=== PATIENT | male | born 1995 | race Caucasian/White ===

== ENCOUNTER → 2021-01-27 | Outpatient (CLI) | payer OTHER ==
[~2021-01-27] MED LIST: LAMICTAL100 MG PO; PROTONIX 20 MG20 MG PO
[2021-01-27 08:40] LABS: HEMOGLOBIN 15.1 gm/dl (14.0-17.5); RED BLOOD COUNT 4.61 M/UL (4.20-5.50); WHITE BLOOD COUNT 6.3 K/UL (4.5-11.0)
[2021-01-27 09:29] LABS: BUN/CREATININE RATIO 14 (0-10)
[2021-01-29 05:11] LABS: THYROXINE (T4) 7.5 ug/dL (4.5-12.0)
== END ==
LOC: LAB 08:16
PROVIDERS: Nurse Practitioner Family
DX: R53.82 Chronic fatigue, unspecified (principal); R63.0 Anorexia; F41.1 Generalized anxiety disorder; R10.2 Pelvic and perineal pain; K56.41 Fecal impaction
CPT/HCPCS: 36415; 74018; 80053; 80061; 81001; 84153; 84436; 84443; 84480; 85025

== ENCOUNTER 2021-06-22 19:13 | Emergency (ER) | payer OTHER ==
[2021-06-22 21:11] LABS: HEMOGLOBIN 13.4 gm/dl (14.0-17.5); RED BLOOD COUNT 4.12 M/UL (4.20-5.50); WHITE BLOOD COUNT 2.9 K/UL (4.5-11.0)
[2021-06-22 21:32] LABS: BUN/CREATININE RATIO 8 (0-10)
== END 2021-06-22 23:15 | disposition home or self-care (01) ==
LOC: ER1 19:13
PROVIDERS: Family Medicine
DX: U07.1 COVID-19 (principal); R10.32 Left lower quadrant pain; Z90.49 Acquired absence of other specified parts of digestive tract
CPT/HCPCS: 80053; 81001; 83690; 85025; 96374; 96375; 99284; J1885; J2405; Q9967

== ENCOUNTER → 2021-08-15 | Outpatient (CLI) | payer OTHER ==
[2021-08-15 14:06] LABS: HEMOGLOBIN 14.2 gm/dl (14.0-17.5); RED BLOOD COUNT 4.27 M/UL (4.20-5.50); WHITE BLOOD COUNT 4.3 K/UL (4.5-11.0)
[2021-08-15 14:30] LABS: BUN/CREATININE RATIO 15 (0-10)
[2021-08-16 10:14] LABS: HBSAG SCREEN Negative (Negative); HEP A AB, IGM Negative (Negative); HEP B CORE AB, IGM Negative (Negative); HEP C VIRUS AB <0.1 (0.0-0.9)
== END ==
LOC: LAB 13:08
PROVIDERS: Nurse Practitioner Family
DX: Z11.59 Encounter for screening for other viral diseases (principal); R00.2 Palpitations; R53.82 Chronic fatigue, unspecified; R63.4 Abnormal weight loss
CPT/HCPCS: 36415; 80053; 80074; 84439; 84443; 85025; 85652; 86140

== ENCOUNTER → 2021-10-21 | Outpatient (CLI) | payer OTHER ==
[~2021-10-21] MED LIST changes: +PROTONIX 40 MG40 M1 PO
[2021-10-21 15:50] LABS: HEMOGLOBIN 13.7 gm/dl (14.0-17.5); RED BLOOD COUNT 4.19 M/UL (4.20-5.50); WHITE BLOOD COUNT 3.6 K/UL (4.5-11.0)
[2021-10-22 08:15] LABS: ALBUMIN 4.4 g/dL (4.1-5.2); ALKALINE PHOSPHATASE 61 IU/L (44-121); ALT (SGPT) 18 IU/L (0-44); AST (SGOT) 22 IU/L (0-40); BILIRUBIN, DIRECT 0.33 mg/dL (0.00-0.40); BILIRUBIN, TOTAL 1.3 mg/dL (0.0-1.2); BUN 11 mg/dL (6-20); BUN/CREATININE RATIO 13 (9-20); CALCIUM, SERUM 9.2 mg/dL (8.7-10.2); CARBON DIOXIDE, TOTAL 25 mmol/L (20-29); CHLORIDE, SERUM 105 mmol/L (96-106); CREATININE, SERUM 0.85 mg/dL (0.76-1.27); EGFR IF AFRICN AM 140 (>59); EGFR IF NONAFRICN AM 121 (>59); GLUCOSE, SERUM 79 mg/dL (65-99); POTASSIUM, SERUM 4.1 mmol/L (3.5-5.2); PROTEIN, TOTAL 6.5 g/dL (6.0-8.5); SODIUM, SERUM 145 mmol/L (134-144)
[2021-10-22 16:12] LABS: ENDOMYSIAL ANTIBODY IGA Negative (Negative); IMMUNOGLOBULIN A, QN, SERUM 80 mg/dL (90-386); T-TRANSGLUTAMINASE (TTG) IGA <2 U/mL (0-3); T-TRANSGLUTAMINASE (TTG) IGG <2 U/mL (0-5)
== END ==
LOC: LAB 15:18
PROVIDERS: Internal Medicine Gastroenterology
DX: R94.5 Abnormal results of liver function studies (principal)
CPT/HCPCS: 36415; 80048; 80076; 82150; 82784; 83690; 85027

== ENCOUNTER → 2021-10-23 | Day surgery (SDC) | payer OTHER | END | disposition home or self-care (01) | LOC: OR 06:41 | DX: K31.7 Polyp of stomach and duodenum (principal); K22.2 Esophageal obstruction; G89.29 Other chronic pain; R10.10 Upper abdominal pain, unspecified; K59.09 Other constipation; R63.6 Underweight; R11.0 Nausea; Z72.0 Tobacco use; Z20.822 Contact with and (suspected) exposure to COVID-19 | CPT/HCPCS: J2704; J7040 ==

== ENCOUNTER → 2021-11-08 | Outpatient (CLI) | payer OTHER ==
[2021-11-08 14:46] LABS: HEMOGLOBIN 14.7 gm/dl (14.0-17.5); RED BLOOD COUNT 4.46 M/UL (4.20-5.50)
[2021-11-08 15:33] LABS: BUN/CREATININE RATIO 9 (0-10)
[2021-11-09 07:11] LABS: VITAMIN D, 25-HYDROXY 29.5 ng/mL (30.0-100.0)
== END ==
LOC: LAB 14:03
PROVIDERS: Nurse Practitioner
DX: R10.30 Lower abdominal pain, unspecified (principal); F41.1 Generalized anxiety disorder; E03.9 Hypothyroidism, unspecified; E55.9 Vitamin D deficiency, unspecified; R53.83 Other fatigue; R53.82 Chronic fatigue, unspecified; K59.00 Constipation, unspecified
CPT/HCPCS: 36415; 74018; 80053; 80061; 81001; 84436; 84443; 84480; 85025

== ENCOUNTER → 2022-01-08 | Day surgery (SDC) | payer OTHER ==
[2022-01-08 11:09] LABS: HEMOGLOBIN 13.6 gm/dl (14.0-17.5); RED BLOOD COUNT 4.16 M/UL (4.20-5.50); WHITE BLOOD COUNT 4.6 K/UL (4.5-11.0)
[2022-01-10 14:13] LABS: ENDOMYSIAL ANTIBODY IGA Negative (Negative); IMMUNOGLOBULIN A, QN, SERUM 73 mg/dL (90-386); T-TRANSGLUTAMINASE (TTG) IGA <2 U/mL (0-3); T-TRANSGLUTAMINASE (TTG) IGG <2 U/mL (0-5)
== END | disposition home or self-care (01) ==
LOC: OR 07:18
PROVIDERS: Internal Medicine Gastroenterology
DX: K22.2 Esophageal obstruction (principal); F17.290 Nicotine dependence, other tobacco product, uncomplicated; Z20.822 Contact with and (suspected) exposure to COVID-19
CPT/HCPCS: 80076; 82784; 85025; J2704; J7040

== ENCOUNTER → 2022-02-06 | Day surgery (SDC) | payer OTHER | END | disposition home or self-care (01) | LOC: OR 07:42 | DX: K22.2 Esophageal obstruction (principal); K59.09 Other constipation; R63.6 Underweight; Z68.1 Body mass index [BMI] 19.9 or less, adult; Z20.822 Contact with and (suspected) exposure to COVID-19; Z72.0 Tobacco use | CPT/HCPCS: J2704; J7040 ==